=== PATIENT | male | born 1960 | race Caucasian/White ===

== ENCOUNTER 2021-10-17 18:08 | Emergency (ER) | payer OTHER ==
[~2021-10-17] VITALS: Ht 162.6 cm; Wt 70.3 kg
[2021-10-17 18:25] VITALS: BP 129/89
[2021-10-17] MEDS ORDERED: LID5T TP (19:46)
== END 2021-10-17 19:54 | disposition home or self-care (01) ==
LOC: MED 18:08
DX: M54.50 Low back pain, unspecified (principal); Z79.899 Other long term (current) drug therapy
CPT/HCPCS: 81002; 99283